=== PATIENT | male | born 1990 | race Caucasian/White ===

== ENCOUNTER 2017-02-03 06:17 | Emergency (ER) | payer SELFPAY ==
[2017-02-03 06:33] VITALS: BMI 29.9
--- NOTE | 2017-02-03 07:27 | PDOC ---
History of Present Illness - General Chief Complaint: Pain, Acute Stated Complaint: PAIN,RT SIDE Time Seen by Provider: 02/03/17 07:09 - History of Present Illness Initial Comments: 02/03/17 08:42 Patient is a 26 year old male with no PMH who presents with right sided abdominal pain. The patient reports a 1 year history of right upper quadrant abdominal pressure. He was evaluated at [place] 1 year ago where he was told that he had sludge in his gallbladder. He has been asymptomatic since that time until he began experiencing the abdominal pressure yesterday evening that kept him up through the night prompting his visit to the ED today. He states that he doesn't have any pain and that it is more of a pressure that he is experiencing worse with movement. He denies any nausea, vomiting, chest pain , or changes with urination. He states that he occasionally experiences some constipation with hard stools and occasionally experiences SOB as well. He reports a history of alcohol use with is last drink being over a month ago. He reports a history of smoking and quit 1 year ago. Past History - Past Medical History Allergies/Adverse Reactions: Allergies Allergy/AdvReac Type Severity Reaction Status Date / Time No Known Allergies Allergy Verified 02/03/17 08:01 Home Medications: Ambulatory Orders NK [No Known Home Medication] 02/03/17 - Immunization History Immunization Up to Date: Yes - Psycho/Social/Smoking Cessation Hx Suicidal Ideation: No Smoking History: Never smoked Have you smoked in the past 12 months: No Information on smoking cessation initiated: No Hx Alcohol Use: No Drug/Substance Use Hx: No Review of Systems - Review of Systems Constitutional: No: Chills, Fever Respiratory: Yes: Shortness of Breath. No: Cough Cardiac (ROS): No: Chest Pain, Lightheadedness, Palpitations ABD/GI: Yes: Constipated. No: Diarrhea, Nausea, Vomiting : No: Burning, Dysuria Integumentary: No: Rash Neurological: No: Headache, Numbness, Tingling, Weakness *Physical Exam - Vital Signs Last Vital Signs Temp Pulse Resp BP Pulse Ox 98.1 F 71 20 130/85 100 02/03/17 06:30 02/03/17 06:30 02/03/17 06:30 02/03/17 06:30 02/03/17 06:30 - Physical Exam Comments: 02/03/17 08:50 General Appearance: Nourished. No Apparent Distress HEENT: No Pharyngeal Erythema, Tonsillar Exudate, Tonsillar Erythema Neck: No Cervical Lymphadenopathy Respiratory/Chest: Lungs Clear, Normal Breath Sounds. No Crackles, Rales, Rhonchi, Wheezing Cardiovascular: Regular Rhythm, Regular Rate. No Murmur, Gallop/S3, Gallop/S4 Gastrointestinal/Abdominal: Normal Bowel Sounds, Soft. No Guarding, Rebound, Tenderness Musculoskeletal: Normal Inspection. No CVA Tenderness Extremity: Normal Capillary Refill Integumentary: Normal Color, Dry, Warm Neurologic: Fully Oriented, Alert, Normal Mood/Affect, Normal Response ED Treatment Course - LABORATORY CBC & Chemistry Diagram: 02/03/17 07:30 02/03/17 07:30 Medical Decision Making - Medical Decision Making 02/03/17 08:51 Patient is a 26 year old who presents with concerns for right sided abdominal pain. Differential includes but is not limited to: Gallstones, Cholecystitis, Pancreatitis, gastritis, pyelonephritis, nephrolethiasis, musculoskeletal. The patient's pain is reproducible with palpation and located more on the patient' s right flank making a musculoskeletal pain the most likely cause of the patient 's symptoms. It appears that there could also be a gastritic component of his symptoms as well. Bedside ultrasound with Dr. Grande demonstrated no gallstones or sludge with a wall thickness of 0.17cm. We will obtain a cbc, cmp , UA, lipase, and chest radiograph to evaluate for other etiology. We will give the patient pepcid as well to help alleviate his symptoms. 02/03/17 09:05 CBC, cmp, UA, lipase, are unremarkable. Chest radiograph is read as unremarkable as read by our radiologist. The patient reports improvement in his symptoms and is resting comfortably. We discussed the results with the patient and feel comfortable discharging him at this time. The patient voiced understanding and is agreeable with the plan. *DC/Admit/Observation/Transfer Diagnosis at time of Disposition: Musculoskeletal strain Gastritis Qualifiers: Gastritis type: other gastritis Chronicity: unspecified Gastritis bleeding: without bleeding Qualified Code(s): K29.60 - Other gastritis without bleeding - Discharge Dispostion Disposition: HOME Condition at time of disposition: Improved Admit: No - Referrals Referrals: Samira Lyons MD [Staff Physician] - Baldomero Garcia MD [Staff Physician] - Tera Medina MD [Staff Physician] - - Patient Instructions Printed Discharge Instructions: DI for Gastritis, DI for Muscle Strain Additional Instructions: Please return to the ER if you experience concerning or worsening symptoms. Please follow up with a primary care provider to discuss your ER visit and establish care. Please call one of the provider numbers. You may take over the counter medication such as pepcid to help alleviate your symptoms.
[2017-02-03 07:43] LABS: URINE APPEARANCE CLEAR; URINE BILIRUBIN NEGATIVE (NEGATIVE); URINE BLOOD NEGATIVE (NEGATIVE); URINE COLOR LT. YELLOW; URINE GLUCOSE (UA) NEGATIVE (NEGATIVE); URINE KETONE NEGATIVE (NEGATIVE); URINE LEUK ESTERASE NEGATIVE (NEGATIVE); URINE NITRITE NEGATIVE (NEGATIVE); URINE PROTEIN NEGATIVE (NEGATIVE); URINE UROBILINOGEN 0.2 mg/dL (0.2-1.0)
[2017-02-03 07:47] LABS: BASOPHIL 0.8 % (0-2.0); EOSINOPHIL 4.3 % (0-4.5); MCH 30.6 pg (25.7-33.7); MCHC 35.7 g/dl (32.0-35.9); MEAN CELL VOLUME 85.8 fl (80-96); MEAN PLT VOLUME 10.1 fl (7.5-11.1); PLATELET COUNT 145 K/MM3 (134-434); RDW 13.3 % (11.9-15.9); WHITE BLOOD COUNT 7.2 K/mm3 (4.0-10.0)
[2017-02-03] MEDS ORDERED: FAMOTIDINE 20 MG/50 ML IVPB 50 ML IVPB ONE (07:58)
--- NOTE | 2017-02-03 07:59 | PDOC ---
Attending Attestation - HPI HPI: 02/03/17 08:08 Patient is a 26 year old male with no pmhx who presents to the ED with RUQ abdominal pain intermittently for 1 year. Patient states that he was prompted to present to the ED due to poking pain and quick fullness. Patient reports chill but denies fever, nausea, vomiting or diarrhea. He reports increased abdominal bloating. He states his last bowel movement was at 7 AM today, he reports daily bowel movements. He also reports SOB for 3 days. He reports normal PO intake. He denies any sour taste in the back of the mouth or GERD. Patient reports spitting up saliva with spotty blood after drinking beer. SH - former alcohol use quit 2 months ago, former smoker. - Physicial Exam PE: 02/03/17 08:10 GENERAL: Awake, alert, and fully oriented, in no acute distress HEAD: No signs of trauma EYES: PERRLA, EOMI, sclera anicteric, conjunctiva clear ENT: Auricles normal inspection, hearing grossly normal, nares patent, oropharynx clear without exudates. Moist mucosa NECK: Normal ROM, supple, no lymphadenopathy, JVD, or masses LUNGS: Breath sounds equal, clear to auscultation bilaterally. No wheezes, and no crackles HEART: Regular rate and rhythm, normal S1 and S2, no murmurs, rubs or gallops ABDOMEN: +mild abdominal RUQ tenderness over the 12th rib. No CVA tenderness. Soft, normoactive bowel sounds. No guarding, no rebound. No masses EXTREMITIES: Normal range of motion, no edema. No clubbing or cyanosis. No cords, erythema, or tenderness NEUROLOGICAL: Cranial nerves II through XII grossly intact. Normal speech, normal gait SKIN: Warm, Dry, normal turgor, no rashes or lesions noted. - Medical Decision Making 02/03/17 08:10 Documentation prepared by ANGELA Menendez, acting as medical records director for Jayla Grande DO, MD/. <Laura Davis - Last Filed: 02/03/17 08:08> - Resident Resident Name: Naeem Swift - ED Attending Attestation I have performed the following: I have examined & evaluated the patient, The case was reviewed & discussed with the resident, I agree w/resident's findings & plan, Exceptions are as noted - Medical Decision Making 02/03/17 08:24 I, Dr. Jayla Grande, DO, attest that this document has been prepared under my direction and personally reviewed by me in its entirety. I further attest, that it accurately reflects all work, treatment, procedures and medical decision -making performed by me. 02/03/17 08:25 bedside ultrasound of RUQ: no gallbladder wall thickening, no pericholecystic fluid, negative sonographic murphys, no gall stones 02/03/17 08:25 a/p: 26yo male with hx of ETOH use: 12pack/day intermittently, now with RUQ pain and epigastric pain -will check labs including lipase -RUQ ultrasound -cxr -ua -will monitor and reassess 02/03/17 08:35 xray reviewed, that does not show any evidence of acute lung disease 02/03/17 09:14 Laboratory Tests 02/03/17 02/03/17 02/03/17 07:30 07:30 07:30 WBC 7.2 Hgb 15.1 Hct 42.2 Plt Count 145 Sodium 140 Potassium 3.5 Chloride 105 Carbon Dioxide 26 BUN 13 Creatinine 0.6 L Total Bilirubin 0.7 AST 12 L ALT 28 Alkaline Phosphatase 99 Lipase Urine Color Lt. yellow Urine Appearance Clear Urine Protein Negative Urine Glucose (UA) Negative Urine Ketones Negative Urine Blood Negative Urine Nitrite Negative Urine Bilirubin Negative Ur Leukocyte Esterase Negative 02/03/17 07:30 WBC Hgb Hct Plt Count Sodium Potassium Chloride Carbon Dioxide BUN Creatinine Total Bilirubin AST ALT Alkaline Phosphatase Lipase 115 Urine Color Urine Appearance Urine Protein Urine Glucose (UA) Urine Ketones Urine Blood Urine Nitrite Urine Bilirubin Ur Leukocyte Esterase labs reviewed, normal wbc, hgb/hct, plts, no elevated LFT, normal lipase. 02/03/17 09:18 re-eval: pt resting comfortably, sleeping, easily arousable. discussed all lab and imaging results in detail with the patient. pt states he is feeling better. Pt with abd soft, nontender. Pt with pinpoint ttp over tip of 12th rib, no rib fx on xray. Pt does not have a pmd. Will give PMD upon discharge to assist with followup. Pt is stable for discharge to home. Discussed all reasons for the patient to return to the ED and all reasons to follow up with a PMD. Anwered all questions. Pt and family (at the bedside) verbalize understanding. 02/03/17 09:20 <Jayla Grande - Last Filed: 02/03/17 09:20>
[2017-02-03 08:15] LABS: ALK PHOS 99 U/L (45-117); ANION GAP 9 (8-16); BILIRUBIN,TOTAL 0.7 mg/dL (0.2-1.0); CO2 26 mmol/L (21-32); CREATININE 0.6 mg/dL (0.7-1.3); GLUCOSE,RANDOM 104 mg/dL (74-106); SGOT/AST 12 U/L (15-37); SGPT/ALT 28 U/L (12-78); TOT PROT 7.2 g/dl (6.4-8.2)
[2017-02-03 08:41] VITALS: TEMP 98.3
[2017-02-03] MEDS ORDERED: IBUPROFEN 600 MG TABLET (FP) PO ONE ×2 (08:59→09:07)
[2017-02-03 09:27] VITALS: BP 132/74; PULSE 70
== END 2017-02-03 09:26 | disposition home or self-care (01) ==
LOC: JER 06:17
PROC: 3E033GC Introduction of Other Therapeutic Substance into Peripheral Vein, Percutaneous Approach (ICD-10-PCS; principal; 2017-02-03)
DX: K29.70 Gastritis, unspecified, without bleeding (principal); S39.011A Strain of muscle, fascia and tendon of abdomen, initial encounter; X58.XXXA Exposure to other specified factors, initial encounter; Y93.9 Activity, unspecified
CPT/HCPCS: 36415; 71020-TC; 80053; 81003; 83690; 85025; 99282-25